=== PATIENT | female | born 1980 | race Caucasian/White ===

== ENCOUNTER 2017-10-13 11:32 | Emergency (ER) | payer BC ==
[~2017-10-13] VITALS: Ht 170.2 cm; Wt 142.4 kg
[~2017-10-13 11:32] MED LIST: ONDA4ODT MM
[2017-10-13] MEDS ORDERED: Imitrex100 MG PO (11:59)
[2017-10-13] MEDS ORDERED: Felodipine ER10 MG PO (11:59)
[2017-10-13] MEDS ORDERED: SPIR50 PO (11:59)
[2017-10-13] MEDS ORDERED: ACID REDUCER 1150 MG PO (11:59)
[2017-10-13] MEDS ORDERED: Metformin HCl500 MG PO (12:00)
[2017-10-13] MEDS ORDERED: Lamictal200 MG PO (12:00)
[2017-10-13] MEDS ORDERED: LIOT5 PO (12:00)
[2017-10-13] MEDS ORDERED: OMEPRAZOLE CAP 20M (12:00)
[2017-10-13] MEDS ORDERED: Prozac40 MG PO (12:00)
[2017-10-13] MEDS ORDERED: TRAZ100 PO (12:00)
[2017-10-13] MEDS ORDERED: METO100ER PO (12:01)
[2017-10-13] MEDS ORDERED: Dyazide 37.5-21 EACH PO (12:01)
[2017-10-13] MEDS ORDERED: ZIPR60 PO (12:01)
[2017-10-13] MEDS ORDERED: DIAZ5 PO (12:02)
[2017-10-13] MEDS ORDERED: Synthroid/Levo0.2 MG (12:03)
[2017-10-13] MEDS ORDERED: SPIR25 PO (12:03)
== END 2017-10-13 12:42 | disposition home or self-care (01) ==
LOC: ER 11:32
DX: G43.909 Migraine, unspecified, not intractable, without status migrainosus (principal); Z79.899 Other long term (current) drug therapy; F32.9 Major depressive disorder, single episode, unspecified; F41.9 Anxiety disorder, unspecified; I10 Essential (primary) hypertension; F17.200 Nicotine dependence, unspecified, uncomplicated
CPT/HCPCS: 96372; 99283; J0780; J1200; J1885

== ENCOUNTER 2019-05-02 07:42 | Emergency (ER) | payer OTHER, BC ==
[~2019-05-02] VITALS: Ht 167.6 cm; Wt 163.3 kg
[~2019-05-02 07:42] MED LIST changes: +DIAZ5 PO; +Dyazide 37.5-21 EACH PO; +Felodipine ER10 MG PO; +Imitrex100 MG PO; +LIOT5 PO; +Lamictal200 MG PO; +METF500 PO; +METO100ER PO; +OMEPRAZOLE MAGN20 MG PO; +Prozac40 MG PO; +SPIR25 PO; +SPIR50 PO; +Synthroid/Levo0.2 MG; +TRAZ100 PO; +ZIPR60 PO; +Zantac150 MG PO
[2019-05-02] MEDS ORDERED: CYCL10 PO (09:28)
[2019-05-02] MEDS ORDERED: Norco 5-325 Ta1 EACH PO (09:28)
== END 2019-05-02 10:22 | disposition home or self-care (01) ==
LOC: ER 07:42
DX: T14.90XA Injury, unspecified, initial encounter (principal); R51 Headache; M54.6 Pain in thoracic spine; M54.5 Low back pain; F17.200 Nicotine dependence, unspecified, uncomplicated; V47.5XXA Car driver injured in collision with fixed or stationary object in traffic accident, initial encounter
CPT/HCPCS: 72040; 72100; 96372; 99284-25; A9270-GY; J1170

== ENCOUNTER 2019-05-09 11:53 | Emergency (ER) | payer BC ==
[~2019-05-09] VITALS: Ht 170.2 cm; Wt 165.6 kg
[~2019-05-09 11:53] MED LIST changes: +CYCL10 PO; +Norco 5-325 Ta1 EACH PO
[2019-05-09] MEDS ORDERED: DIAZ5 PO (12:52)
[2019-05-09] MEDS ORDERED: Trazodone HCl300 MG PO (12:53)
[2019-05-09 13:04] LABS: BASOPHILS ABSOLUTE AUTO 0.08 K/mm3 (0.00-0.23); BASOPHILS PERCENT AUTO 1 % (0-2); EOSINOPHILS ABSOLUTE AUTO 0.14 K/mm3 (0.00-0.68); EOSINOPHILS PERCENT AUTO 1 % (0-6); Hematocrit 46.8 % (33.0-51.0); Hemoglobin 14.4 g/dL (11.5-16.0); IMMATURE GRAN ABSOLUTE AUTO 0.06 K/mm3 (0.00-0.10); IMMATURE GRAN PERCENT AUTO 1 % (0-1); LYMPHOCYTES ABSOLUTE AUTO 2.85 K/mm3 (0.84-5.20); LYMPHOCYTES PERCENT AUTO 23 % (21-46); MONOCYTES ABSOLUTE AUTO 0.73 K/mm3 (0.16-1.47); MONOCYTES PERCENT AUTO 6 % (4-13); Mean Corpuscular HGB 27.2 pg (26.0-34.0); Mean Corpuscular HGB Conc 30.8 g/dL (31.5-36.5); Mean Corpuscular Volume 88 fL (80-100); Mean Platelet Volume 9.8 fL (9.1-12.4); NEUTROPHILS ABSOLUTE AUTO 8.55 K/mm3 (1.96-9.15); NEUTROPHILS PERCENT AUTO 69 % (41-73); Platelet Count 361 K/mm3 (150-400); RDW Coefficient Variation 14.7 % (11.7-14.2); RDW Standard Deviation 47.3 fL (35.1-46.3); White Blood Cell Count 12.41 K/mm3 (4.00-11.30)
[2019-05-09] MEDS ORDERED: LEVSOD50 PO (13:25)
[2019-05-09] MEDS ORDERED: B-121000 MC3 PO (13:26)
[2019-05-09] MEDS ORDERED: NAPR500EC PO (13:26)
[2019-05-09] MEDS ORDERED: SPIRONOLACTONE50 MG PO (13:27)
[2019-05-09] MEDS ORDERED: BUPROPION XL150 M1 PO (13:28)
[2019-05-09] MEDS ORDERED: Dyazide 37.5-21 EACH PO (13:28)
[2019-05-09] MEDS ORDERED: ARIPIPRAZOLE10 M1 PO (13:29)
[2019-05-09 13:55] LABS: Alanine Aminotransfer (ALT/SGP 41 U/L (12-78); Albumin, Blood 4.2 g/dL (3.4-5.0); Alk Phos 87 U/L (50-136); Anion Gap 9 mmol/L (6-16); Aspartate Aminotrans (AST/SGOT 35 U/L (12-37); Bilirubin, Total 0.4 mg/dL (0.1-1.0); Blood Urea Nitrogen 13 mg/dL (8-24); Bun/Creatinine Ratio 18.8 (12.0-20.0); CO2, Blood 24 mmol/L (21-32); Calcium, Blood 9.7 mg/dL (8.5-10.1); Chloride, Blood 103 mmol/L (98-108); Creatinine, Blood 0.69 mg/dL (0.40-1.00); Globulin, Blood 4.3 g/dL (2.2-4.0); Glomerular Filtration Rate >60 (60-); Glucose, Blood 92 mg/dL (70-99); Potassium, Blood 4.6 mmol/L (3.5-5.5); Sodium, Blood 136 mmol/L (136-145); Total Protein, Blood 8.5 g/dL (6.4-8.2); Troponin I <0.015 ng/mL (0.000-0.040)
[2019-05-09 14:03] LABS: Source, Urine Clean Catch
[2019-05-09 14:24] LABS: Bilirubin, Urine Neg (Neg); Blood, Urine 5+ (Neg); Glucose Qualitative, Urine Neg (Neg); Ketones, Urine Neg (Neg); Leukocyte Esterase, Urine Neg (Neg); Nitrite, Urine Neg (Neg); Protein, Urine 2+ (Neg); Specific Gravity, Urine 1.005 (1.003-1.022); Urobilinogen, Urine NORM (Normal)
[2019-05-09 14:35] LABS: Appearance, Urine Clear (Clear); Color, Urine Yellow (P-Yellow)
[2019-05-09 14:36] LABS: Bacteria Few /hpf; Squamous Epithelial Cells Few /hpf (Few); White Blood Cells, Urine 0-2 /hpf (0-5)
== END 2019-05-09 15:57 | disposition home or self-care (01) ==
LOC: ER 11:53
PROVIDERS: Physician Assistant
DX: G93.40 Encephalopathy, unspecified (principal); G43.909 Migraine, unspecified, not intractable, without status migrainosus; F41.9 Anxiety disorder, unspecified; F17.200 Nicotine dependence, unspecified, uncomplicated; Z79.899 Other long term (current) drug therapy; Z79.84 Long term (current) use of oral hypoglycemic drugs
CPT/HCPCS: 36415; 80053; 81001; 82947; 84484; 85025; 93005; 93010; 99285-25

== ENCOUNTER → 2019-05-19 | Outpatient (CLI) | payer BC ==
[~2019-05-19] MED LIST changes: +ARIPIPRAZOLE10 M1 PO; +B-121000 MC3 PO; +BUPROPION XL150 M1 PO; +LEVSOD50 PO; +NAPR500EC PO; +SPIRONOLACTONE50 MG PO; +Trazodone HCl300 MG PO
== END | disposition home or self-care (01) ==
LOC: LAB SHORT 13:56 → OLS 13:56 → EDSTATUS 05-10 17:10 → LAB FUT 05-10 17:10
PROVIDERS: Registered Nurse
DX: R41.3 Other amnesia (principal); R93.89 Abnormal findings on diagnostic imaging of other specified body structures
CPT/HCPCS: 81050; 82530